=== PATIENT | female | born 1995 | race Caucasian/White ===

== ENCOUNTER 2022-09-12 08:01 | Outpatient (CLI) | payer BC ==
[2022-09-12 09:09] LABS: ALANINE AMINOTRANSFERASE 16 U/L (12-78); ASPARTATE AMINO TRANSFERASE 16 U/L (10-37); CHOLESTEROL 109 MG/DL (0-200); TRIGLYCERIDES 40 MG/DL (20-135)
== END 2022-09-12 23:59 | disposition home or self-care (01) ==
LOC: LAB 08:01
PROVIDERS: ATTEND Dermatology
DX: L70.0 Acne vulgaris (principal)
CPT/HCPCS: 36415; 82465; 84450; 84460; 84478